=== PATIENT | female | born 1980 | race African-American/Black ===

== ENCOUNTER 2020-10-09 12:11 | Emergency (ER) | payer MEDICARE, MEDICAID, SELFPAY ==
--- NOTE | ~2020-10-09 | XR_ITS ---
EXAMINATION:XR cervical spine 4-5V DATE: 10/09/2020 13:00 INDICATION: Neck pain TECHNIQUE: AP, bilateral oblique, lateral, lateral swimmers and odontoid views of the cervical spine are provided. COMPARISON: None FINDINGS: Alignment is normal. The odontoid is intact. No fracture is identified. The vertebral body heights are normal. There is mild loss of intervertebral disc space height at C5-6. Prevertebral soft tissues are normal. IMPRESSION: 1. Mild cervical spondylosis without acute findings. Reviewed, dictated and finalized at location A. LITY ASSISTANT
--- NOTE | 2020-10-09 12:28 | ED.GENADULT ---
HPI - General Adult General Chief complaint: Neck Pain/Injury Stated complaint: pain back of neck Time Seen by Provider: 10/09/20 12:30 Source: patient and RN notes reviewed Mode of arrival: ambulatory Limitations: no limitations History of Present Illness HPI narrative: 40-year-old female presents with concern for mid back pain that radiates to the left shoulder. Patient reports she can find positions of comfort when she is flat, however when she moves her neck it causes pain. Reports she is taken Aleve which helps alleviate the pain. Reports that this has been occurring for 1 week. Denies any new injury, trauma. Reports pain started 1 morning after she woke up. Reports similar pain in May after she had a work injury where she pulled on a heavy material causing neck and shoulder muscle strain. Reports that time she used muscle relaxers and anti-inflammatories for relief. Reports her pain in May was resolved. She denies any weakness in any extremity, any headache, numbness. MD complaint: Neck pain Related Data Home Medications Medication Instructions Recorded Confirmed atorvastatin 10/09/20 lisinopril 10/09/20 metoprolol tartrate 10/09/20 nitroglycerin mg 10/09/20 ticagrelor [Brilinta] mg 10/09/20 Allergies Allergy/AdvReac Type Severity Reaction Status Date / Time No Known Allergies Allergy Unverified 07/26/17 11:00 Review of Systems Review of Systems: Narrative: CONSTITUTIONAL: Denies malaise, chills, sweats, or fever. EYES: Denies visual changes, redness, or discharge. ENT: Denies rhinorrhea, congestion, sinus pain, otalgia or sore throat. CARDIOVASCULAR: Denies chest pain, palpitations, or edema. RESPIRATORY: Denies cough or dyspnea. GASTROINTESTINAL: Denies abdominal pain, nausea, vomiting, diarrhea SKIN: Denies bruising, redness MUSCULOSKELETAL: Reports mid neck and left shoulder pain NEUROLOGIC: Denies numbness, weakness, or headache. All systems reviewed & are unremarkable except as noted in HPI and below PMFSH Comments At time of signature, agree with nursing past medical, surgical, social and family history. There is no relevant family history pertinent to the presenting complaint Exam Narrative: Exam Narrative: GENERAL: Well-appearing, well-nourished, and in no acute distress. HEAD: Normocephalic, atraumatic. EYES: PERRLA and EOMI. NECK: Supple. No lymphadenopathy. CHEST: Clear to auscultation. No respiratory distress. HEART: Regular rate and rhythm. Distal pulses palpable and equal, cap refill <3 seconds MUSCULOSKELETAL: Normal range of motion and strength in all extremities; 5/5 strength with hip flexion and extension, dorsiflexion and extension, knee flexion and extension, plantar flexion and extension. Normal sensation in dermatomal distributions with sensitivity to light touch and pain. Midline cervical tenderness to palpation. Left posterior shoulder area tenderness. Transfers from lying to sitting to standing. SKIN: Warm, dry, no rash. No ecchymosis, erythema, open wounds to back. NEURO: No focal deficits. Alert and oriented x3. Reflexes intact. Normal gait. PSYCH: Normal mood and affect Course Course Emergency Course: Patient is aware of diagnosis, understands and agrees to treatment plan. Anticipatory guidance given. Patient agrees to follow-up as directed and is aware of reasons to seek care at the emergency department. Portions of this record may have been created with voice recognition software Vital Signs Vital signs: Vital Signs Temperature 99.2 F 10/09/20 12:33 Pulse Rate 72 10/09/20 12:33 Respiratory Rate 18 10/09/20 12:33 Blood Pressure 131/88 10/09/20 12:33 Pulse Oximetry 100 10/09/20 12:33 Temperature 99.2 F 10/09/20 12:33 Pulse Rate 72 10/09/20 12:33 Respiratory Rate 18 10/09/20 12:33 Blood Pressure 131/88 10/09/20 12:33 Pulse Oximetry 100 10/09/20 12:33 Reviewed. Medical Decision Making MDM Narrative Medical deci
[2020-10-09 12:33] VITALS: BP 131/88; PULSE 72; RESP 18; TEMP 37.3; O2SAT 100
[2020-10-09 13:26] VITALS: BP 131/88; PULSE 72; RESP 18; TEMP 37.3; O2SAT 100
--- NOTE | 2020-10-09 13:27 | PC.NURSE ---
pharmacy changed by drawstring knotter.
== END 2020-10-09 13:16 | disposition home or self-care (01) ==
PROVIDERS: Emergency Provider Nurse Practitioner
DX: S16.1XXA Strain of muscle, fascia and tendon at neck level, initial encounter (principal); X58.XXXA Exposure to other specified factors, initial encounter; I25.110 Atherosclerotic heart disease of native coronary artery with unstable angina pectoris; E78.00 Pure hypercholesterolemia, unspecified; I10 Essential (primary) hypertension; I25.2 Old myocardial infarction
CPT/HCPCS: 72050; 99213; G0463

== ENCOUNTER 2020-10-16 12:56 | Emergency (ER) | payer MEDICARE, MEDICAID, SELFPAY ==
[2020-10-16 13:17] VITALS: BP 129/99; PULSE 73; RESP 16; TEMP 36.7; O2SAT 98
--- NOTE | 2020-10-16 13:35 | ED.EYEPROB ---
HPI - Eye Problem General Chief complaint: Eye Problems Stated complaint: Eye Pain Time Seen by Provider: 10/16/20 13:17 Source: patient Mode of arrival: ambulatory Limitations: no limitations History of Present Illness HPI Narrative: Patient presents today complaining of bilateral eye itching, crusting, and increased tearing since yesterday. Reports it started in the right eye and is now spread to the left eye. Denies any purulent discharge or pain to the eyes. Denies any cough, congestion, rhinorrhea or other URI symptoms. She does report some sneezing and is attributing this to the recent weather changes. Denies vision changes. She does not wear glasses or contacts. Related Data Home Medications Medication Instructions Recorded Confirmed atorvastatin 10/09/20 lisinopril 10/09/20 metoprolol tartrate 10/09/20 nitroglycerin mg 10/09/20 ticagrelor [Brilinta] mg 10/09/20 Allergies Allergy/AdvReac Type Severity Reaction Status Date / Time No Known Allergies Allergy Unverified 07/26/17 11:00 Review of Systems Review of Systems: Narrative: CONSTITUTIONAL: Denies body aches, fever, chills, or sweats. EYES: Denies visual changes. + Bilateral eye redness, tearing, itching, and crusting ENT: Denies rhinorrhea, congestion, sore throat, or otalgia. CARDIOVASCULAR: Denies chest pain, palpitations, or edema. RESPIRATORY: Denies cough or dyspnea. GASTROINTESTINAL: Denies abdominal pain, nausea, vomiting, or diarrhea. GENITOURINARY: Denies dysuria or hematuria. SKIN: Denies rash, itching, or wounds. MUSCULOSKELETAL: Denies back pain, joint pain, or myalgia. NEUROLOGIC: Denies headache, numbness, tingling, or weakness. PSYCH: Denies depression or anxiety. [facility] Past Medical History Medical History (Updated 10/16/20 @ 13:48 by Laya Tucker, WATCH ENGINE OPERATOR, ) Angina pectoris, unspecified Hypercholesterolemia Hypertension Comments At time of signature, I have reviewed and agree with nursing past medical, surgical, social and family history unless otherwise noted. Please see nursing chart for further information. There is no relevant family history pertinent to the presenting complaint Exam Narrative: Exam Narrative: GENERAL: Well-appearing, well-nourished, and in no acute distress. HEAD: Normocephalic, atraumatic. EYES: EOMI. PERRL. Bilateral very slightly edematous conjunctivae with mild erythema. No active drainage or increased tearing. No crusting noted. Lids and lashes normal. ENT: Mucous membranes pink and moist. Nares clear. No rhinorrhea. NECK: Normal AROM. CHEST: No respiratory distress. EXTREMITIES: Normal range of motion. No edema. SKIN: Warm, dry, no rash. Capillary refill normal. Normal skin turgor. NEURO: No focal deficits. Alert and oriented x3. Gait steady. PSYCH: Normal affect. No signs of depression or anxiety. Course Vital Signs Vital signs: Vital Signs Temperature 98.1 F 10/16/20 13:17 Pulse Rate 73 10/16/20 13:17 Respiratory Rate 16 10/16/20 13:17 Blood Pressure 129/99 H 10/16/20 13:17 Pulse Oximetry 98 10/16/20 13:17 Temperature 98.1 F 10/16/20 13:17 Pulse Rate 73 10/16/20 13:17 Respiratory Rate 16 10/16/20 13:17 Blood Pressure 129/99 H 10/16/20 13:17 Pulse Oximetry 98 10/16/20 13:17 Reviewed. Pt has been instructed to follow up with her PCP regarding her elevated blood pressure today. MDM - Eye Problem Differential Diagnosis Differential diagnosis: Likely corneal abrasion, conjunctivitis, periorbital cellulitis and subconjunctival hemorrhage Critical Care Time Critical Care Time Critical Care Time: No Discharge Plan Discharge Clinical Impression: Acute allergic conjunctivitis of both eyes Patient Disposition: Home, Self-Care Condition: Stable Instructions: Conjunctivitis (ED) Additional Instructions: Your symptoms are likely due to allergic pinkeye, which is not contagious. Use an antihistamine eyedrop such as Zad
== END 2020-10-16 13:41 | disposition home or self-care (01) ==
PROVIDERS: Emergency Provider Nurse Practitioner
DX: H10.13 Acute atopic conjunctivitis, bilateral (principal); I20.9 Angina pectoris, unspecified; E78.00 Pure hypercholesterolemia, unspecified; I10 Essential (primary) hypertension
CPT/HCPCS: 99212; G0463

== ENCOUNTER 2022-03-27 15:08 | Emergency (ER) | payer OTHER, SELFPAY ==
[2022-03-27 15:19] VITALS: BP 114/79; PULSE 74; RESP 16; TEMP 36.9; O2SAT 100
--- NOTE | 2022-03-27 15:32 | ED.GENADULT ---
HPI - General Adult General Chief complaint: Unspecified Stated complaint: High Blood Pressure Time Seen by Provider: 03/27/22 15:32 Source: patient Mode of arrival: ambulatory Limitations: no limitations History of Present Illness HPI narrative: 41 yo F here for referral to PCP and senior c web developer. States her health insurance change and she has not seen her PCP since july. Has not seen her senior c web developer for a year. Pt's PCP refilled all her current medications about 2 wks ago for 90 days. States i dont even know how to go about finding a new doctor . She has not complaints today. all systems reviewed and negative except as noted above. Related Data Home Medications Medication Instructions Recorded Confirmed lisinopril 5 mg tablet 10/09/20 citalopram 10 mg tablet 10 mg PO DAILY 03/27/22 03/27/22 nitroglycerin 0.4 mg sublingual 0.4 mg sublingual USEASDIRECTD 03/27/22 03/27/22 tablet pantoprazole 40 mg tablet,delayed 40 mg PO DAILY 03/27/22 03/27/22 release prasugrel 10 mg tablet 10 mg PO DAILY 03/27/22 03/27/22 Allergies Allergy/AdvReac Type Severity Reaction Status Date / Time No Known Allergies Allergy Unverified 03/27/22 15:19 Review of Systems Review of Systems: CONSTITUTIONAL: Denies fever, chills, or sweats. EYES: Denies visual changes, redness, or discharge. ENT: Denies rhinorrhea, congestion, sore throat, or otalgia. CARDIOVASCULAR: Denies chest pain, palpitations, or edema. RESPIRATORY: Denies cough or dyspnea. GASTROINTESTINAL: Denies abdominal pain, nausea, vomiting, or diarrhea. GENITOURINARY: Denies dysuria or hematuria. SKIN: Denies rash or itching. MUSCULOSKELETAL: Denies back pain, joint pain, or myalgia. NEUROLOGIC: Denies headache, numbness, or weakness. PSYCHIATRIC: Denies anxiety or depression. All other systems reviewed are negative, except as documented in HPI. [facility] Past Medical History Medical History (Updated 03/27/22 @ 15:40 by Diana Page NP) Angina pectoris, unspecified Hypercholesterolemia Hypertension Comments At time of signature, agree with nursing past medical, surgical, social and family history. There is no relevant family history pertinent to the presenting complaint. Exam Narrative: GENERAL: This is a well-nourished, well-developed patient, in no apparent distress. HEAD: normocephalic, atraumatic. EYES: PERRL. Sclera clear/white. Vision is grossly intact. EARS: External ears normal NOSE: External nose normal NECK: Neck supple, non-tender without lymphadenopathy, masses or thyromegaly. CARDIOVASCULAR: Regular rate and rhythm without murmurs, gallops, or rubs. RESPIRATORY: Clear to auscultation. Breath sounds equal bilaterally. No wheezes, rales, or rhonchi. SKIN: warm, Dry, intact with no suspicious lesions or rash, good texture and turgor. NEURO: awake, alert, and oriented to person, place and time. There were no obvious focal neurologic abnormalities. EXTREMITIES: No joint tenderness, effusion, or edema noted. Course Course Level of Care: Express Care Visit Vital Signs Vital signs: Vital Signs Temperature 36.9 C 03/27/22 15:19 Pulse Rate 74 03/27/22 15:19 Respiratory Rate 16 03/27/22 15:19 Blood Pressure 114/79 03/27/22 15:19 Pulse Oximetry 100 03/27/22 15:19 Oxygen Delivery Room Air 03/27/22 15:19 Temperature 36.9 C 03/27/22 15:19 Pulse Rate 74 03/27/22 15:19 Respiratory Rate 16 03/27/22 15:19 Blood Pressure 114/79 03/27/22 15:19 Pulse Oximetry 100 03/27/22 15:19 Oxygen Delivery Room Air 03/27/22 15:19 Reviewed Medical Decision Making MDM Narrative Medical decision making narrative: Patient has no complaints today. She just received 90-day refills from her PCP for her medications. She is here for a referral for a new PCP and a senior c web developer due to insurance changes. She has not to be she was given on-call senior c web developer and PCP for the day. She was given Michael booklet and jaime
== END 2022-03-27 15:43 | disposition home or self-care (01) ==
PROVIDERS: Emergency Provider Nurse Practitioner Family
DX: Z03.89 Encounter for observation for other suspected diseases and conditions ruled out (principal); I20.9 Angina pectoris, unspecified; E78.00 Pure hypercholesterolemia, unspecified; I10 Essential (primary) hypertension
CPT/HCPCS: 99211; G0463